=== PATIENT | female | born 1995 | race African-American/Black ===

== ENCOUNTER 2017-01-27 18:48 | Emergency (ER) | payer SELFPAY ==
[~2017-01-27] VITALS: Ht 160 cm; Wt 72.6 kg
[~2017-01-27 18:48] MED LIST: CIPROFLOXACIN500 M2 ORAL; GABAPENTIN100 MG ORAL; HYDROCODON-ACE1 EA15 ORAL; IBUPROFEN600 MG ORAL; NEURONTIN100 MG ORAL; NKM; NORCO 5-325 TA1 EAC1 ORAL; ROBAXIN-750750 MG PO
[2017-01-27 19:16] VITALS: BP 113/68
--- NOTE | 2017-01-27 20:04 | Emergency Room Report ---
History of Present Illness General Chief Complaint: Pain Source: Patient Present Illness HPI 21-year-old female presents to emergency Department complaining of nasal congestion and episodes of rhinorrhea, sneezing and intermittent itchy watery eyes. Patient denies eye pain she reports intermittent headaches rated as 7/10 in severity denies photophobia denies nausea denies vomiting. Patient states she took Benadryl 1 time with no relief. She denies visual changes, floaters, loss of vision, foreign body sensations or discharge from the eyes. Patient states her symptoms besides nasal congestion are intermittent and typically occurred while at work. Patient denies history of allergies patient states symptoms have been going on for several months. denies sore throat, rashes or cough. Denies CP, Palpitations, LOC, AMS, dizziness, Changes in Vision, Sensation, paresthesias, or a sudden severe headache. Allergies: Coded Allergies: No Known Allergies (Unverified , 02/18/15) Patient History Past Medical History: see triage record Past Surgical History: none Pertinent Family History: none Last Menstrual Period: 01/13/17 Now: No Reviewed Nursing Documentation: PMH: Agreed, PSxH: Agreed Review of Systems All Other Systems: negative except mentioned in HPI Physical Exam Vital Signs Date Time Temp Pulse Resp B/P Pulse Ox O2 Delivery O2 Flow Rate FiO2 01/27/17 19:10 97.9 88 17 113/68 100 Room Air Sp02 EP Interpretation: reviewed, normal General Appearance: no apparent distress, alert, GCS 15, non-toxic Head: normocephalic, atraumatic Eyes: bilateral eye EOMI, bilateral eye PERRL, bilateral eye normal inspection , bilateral eye other - no evidence of infection, no erythema, swelling of the lids, or injection. ENT: hearing grossly normal, normal pharynx, no angioedema, normal voice, TMs + canals normal, uvula midline, moist mucus membranes, nasal congestion - turbinates are pale and swollen bilaterally, clear rhinorrhea present bilaterally, nares minimally patent bilaterally, no Tenderness to palpation or percussion of the sinuses. Neck: full range of motion, no meningismus, no bony tend, supple/symm/no masses Respiratory: chest non-tender, lungs clear, normal breath sounds, speaking full sentences Cardiovascular #1: regular rate, rhythm, no edema Musculoskeletal: back normal, gait/station normal, normal range of motion, non- tender Neurologic: alert, oriented x3, responsive, motor strength/tone normal, sensory intact, speech normal Psychiatric: judgement/insight normal, memory normal, mood/affect normal, no suicidal/homicidal ideation Skin: normal color, no rash, warm/dry, well hydrated Lymphatic: no adenopathy Medical Decision Making PA Attestation Dr. Xie is my supervising Physician whom patient management has been discussed with. Diagnostic Impression: Primary Impression: Allergic rhinitis Qualified Codes: J30.2 - Other seasonal allergic rhinitis Additional Impression: Allergic rhinoconjunctivitis ER Course 21-year-old female presents to emergency Department complaining of nasal congestion and episodes of rhinorrhea, sneezing and intermittent itchy watery eyes. Patient denies eye pain she reports intermittent headaches rated as 7/10 in severity denies photophobia denies nausea denies vomiting. Patient states she took Benadryl 1 time with no relief. She denies visual changes, floaters, loss of vision, foreign body sensations or discharge from the eyes. Patient states her symptoms besides nasal congestion are intermittent and typically occurred while at work. Patient denies history of allergies patient states symptoms have been going on for several months. denies sore throat, rashes or cough. Ddx considered but are not limited to URI, pharyngitis, allergies, conjunctivitis Vital signs: Pt. is afebrile, the remaining VS are WNL H&PE are most consistent with allergic rhinitis and hx of allergic conjunctivitis- no acute eye symptoms at this time. , no meningeal signs, oropharynx is not involved, no evidence of bacterial infection at this time. ORDERS: none required at this time, the diagnosis is clinical ED INTERVENTIONS: -Tylenol PO --PT. EDUCATION: Discussed antibiotic resistance with inappropriate prescribing of antibiotics for viral illnesses. Discussed signs and symptoms to indicate viral illness versus bacterial illness. discussed conservative tx of symptoms, and follow up instructions with pcp. Pt. to return to ED with worsening or new symptoms. DISCHARGE: At this time pt. is stable for d/c to home. Will provide printed patient care instructions, and any necessary prescriptions. Care plan and follow up instructions have been discussed with the patient prior to discharge. Last Vital Signs Date Time Temp Pulse Resp B/P Pulse Ox O2 Delivery O2 Flow Rate FiO2 01/27/17 19:16 17 113/68 100 Room Air 01/27/17 19:10 97.9 88 Disposition: HOME, SELF-CARE Condition: Stable Scripts Pseudoephedrine Hcl* (NEXAFED*) 30 Mg Tablet 30 MG ORAL Q6H Y for congestion for 3 Days, #15 TAB Prov: Cecilia Haynes 01/27/17 Loratadine (LORATADINE) 10 Mg Tablet 10 MG PO DAILY for 30 Days, #30 TAB Prov: Cecilia Haynes 01/27/17 Mometasone Furoate (NASONEX) 17 Gm [place].pump 2 SPRAYS NASAL DAILY for 14 Days, #17 GM 0 Refills Prov: Cecilia Haynes 01/27/17 Epinastine Hcl (ELESTAT) 5 Ml Drops 2 DROP OP BID for Itching, #5 ML Prov: Cecilia Haynes 01/27/17 Referrals: NON PHYSICIAN (PCP) Patient Instructions: Allergic Conjunctivitis, [id number], Allergic Rhinitis Additional Instructions: Take medications as directed. Follow up with PCP in 3-5 days Return sooner to ED if new symptoms occur, or current symptoms become worse. Do not drink alcohol, drive, or operate heavy machinery while taking [ ] as this may cause drowsiness. - Please note that this Emergency Department Report was dictated using [employer] technology software, occasionally this can lead to erroneous entry secondary to interpretation by the dictation equipment. Cecilia Haynes Jan 27, 2017 20:04
[2017-01-27 20:05] VITALS: BP 113/68
[2017-01-27] MEDS ORDERED: ELESTAT5 ML OP (20:08)
[2017-01-27] MEDS ORDERED: NEXAFED30 MG ORAL (20:08)
[2017-01-27] MEDS ORDERED: NASONEX17 GM NASAL (20:08)
[2017-01-27] MEDS ORDERED: LORATADINE10 M2 PO (20:08)
[2017-01-27] MEDS ORDERED: Acetaminophen 500mg (ES) tab ORAL ONE (20:15)
== END 2017-01-27 20:42 | disposition home or self-care (01) ==
LOC: EMR 19:27
DX: J30.2 Other seasonal allergic rhinitis (principal); H10.10 Acute atopic conjunctivitis, unspecified eye
CPT/HCPCS: 99284